=== PATIENT | female | born 1995 | race Caucasian/White ===

== ENCOUNTER 2019-10-21 15:25 | Outpatient (CLI) | payer OTHER, SELFPAY ==
--- NOTE | ~2019-10-21 | US_ITS ---
US thyroid INDICATION: Abnormal thyroid symptoms and signs. TECHNIQUE: Real-time sonographic images of the thyroid gland were obtained. COMPARISON: No prior studies for comparison. FINDINGS: The right thyroid lobe measures 4.6 x 1.1 x 1.6 cm. The left thyroid lobe measures 4.7 x 1 x 1.4 cm. There are no masses identified in the left lobe. In the right lobe there is an ill-defined hypoechoic solid mass measuring 2 x 0.8 x 0.9 cm which is wider than tall and ill-defined margins. N o calcifications identified. There are smaller 2 and 3 mm hypoechoic masses of the right lobe, likely benign. IMPRESSION: 1. Solid hypoechoic right thyroid mass measuring 2 cm greatest dimension categorized as TR 4, modera tely suspicious. Ultrasound-guided fine-needle aspiration recommended. Reviewed, dictated and finalized at location A. AL OPERATOR LINGUIST IMPRESSION: 1. Solid hypoechoic right thyroid mass measuring 2 cm greatest dimension categ orized as TR 4, moderately suspicious. Ultrasound-guided fine-needle aspiration recommended.
== END 2019-10-21 15:26 | disposition home or self-care (01) ==
LOC: ANHIMG 15:33
PROVIDERS: PCP Internal Medicine; Visit Provider Internal Medicine
DX: R68.89 Other general symptoms and signs (principal); R94.6 Abnormal results of thyroid function studies
CPT/HCPCS: 76536

== ENCOUNTER 2019-11-02 13:37 | Outpatient (CLI) | payer OTHER, SELFPAY ==
--- NOTE | ~2019-11-02 | US_ITS ---
EXAMINATION: US FNA w image guidance DATE: 11/02/2019 14:44 INDICATION: Disorder of thyroid TECHNIQUE: A time-out was performed to verify the patient's name, date of , and procedure to be performed . The procedure and its benefits and risks were discussed with the patient. Risks specifically discus sed included bleeding and infection. The patient understood the risks and agreed to proceed. The neck was prepped and draped in the usual sterile manner. 3 mL 1% lidocaine was used for local anesthesia . 6 passes were made with a 25G needle into the lesion. Appropriate needle location was documented with continuous sonographic guidance. A sterile bandage was applied. There were no immediate compli cations. FINDINGS: Grayscale ultrasound images demonstrate needles advanced into a subtle isoechoic 1.8 x 0.9 x 0.7 cm s olid nodule in the deep right thyroid for biopsy. IMPRESSION: 1. Successful ultrasound-guided fine needle aspiration of a 1.8 cm TI RADS 4 solid right thyroid nod ule. Reviewed, dictated and finalized at location A. AL APPLIANCE MECHANIC IMPRESSION: 1. Successful ultrasound-guided fine needle aspiration of a 1.8 cm TI RADS 4 s olid right thyroid nodule.
== END 2019-11-02 13:38 | disposition home or self-care (01) ==
LOC: ANHIMG 13:39
PROVIDERS: PCP Internal Medicine; Visit Provider Internal Medicine
DX: E07.9 Disorder of thyroid, unspecified (principal)
CPT/HCPCS: 10005; 88108; 88173; 88305

== ENCOUNTER 2020-02-04 11:07 | Outpatient (CLI) | payer OTHER, SELFPAY ==
--- NOTE | ~2020-02-04 | US_ITS ---
EXAMINATION: US soft tissue head and neck DATE: 02/04/2020 12:01 INDICATION: Right neck localized swelling. TECHNIQUE: Multiple grayscale and Doppler ultrasound images of the neck were obtained. COMPARISON: None FINDINGS: There is no abnormal mass or lymphadenopathy in right neck in the patient's areas concern. IMPRESSION: 1. No abnormal mass or lymphadenopathy in right neck in the patient's area of concern. Reviewed, dictated and finalized at location A. IMPRESSION: 1. No abnormal mass or lymphadenopathy in right neck in the patient's area of c oncern.
== END 2020-02-04 11:08 | disposition home or self-care (01) ==
PROVIDERS: PCP Internal Medicine; Visit Provider Internal Medicine
DX: R22.0 Localized swelling, mass and lump, head (principal)
CPT/HCPCS: 76536

== ENCOUNTER 2020-05-21 08:57 | Outpatient (CLI) | payer OTHER, SELFPAY ==
--- NOTE | ~2020-05-21 | CT_ITS ---
EXAMINATION: CT brain wo/w con DATE: 05/21/2020 10:14 INDICATION: Dizziness and giddiness. TECHNIQUE: Computed tomography (CT) of the head was performed without and with 100 mL Omnipaque 350 i ntravenous contrast. The mA was adjusted according to patient size. Iterative reconstruction techniqu e was employed. The dose-length product was 1210.67 mGy-cm. COMPARISON: None FINDINGS: There is no intracranial hemorrhage, acute infarction, or abnormal intracranial mass lesion . The ventricles are normal in size. The paranasal sinuses are clear. The mastoid air cells are georg[place] l. IMPRESSION: 1. Normal brain. Reviewed, dictated and finalized at location A. IMPRESSION: 1. Normal brain.
[2020-05-21 09:47] LABS: Estimated Glomerular Filt Rate > 60
== END 2020-05-21 08:58 | disposition home or self-care (01) ==
LOC: ANHIMG 08:59
PROVIDERS: PCP Internal Medicine; Visit Provider Internal Medicine
DX: R51 Headache (principal); R42 Dizziness and giddiness
CPT/HCPCS: 70470; Q9967

== ENCOUNTER 2022-02-13 15:09 | Outpatient (CLI) | payer BC, SELFPAY ==
--- NOTE | ~2022-02-13 | US_ITS ---
EXAMINATION: US thyroid DATE: 02/13/2022 15:39 INDICATION: Goiter. Nontoxic single thyroid nodule. TECHNIQUE: Multiple ultrasound images of the thyroid were obtained. COMPARISON: Thyroid ultrasound 11/02/2019, 10/21/2019 FINDINGS: The right thyroid lobe measures 4.1 x 1.0 x 1.6 cm. The left thyroid lobe measures 4.2 x 1.1 x 1.3 c m. In the right thyroid lobe, there is a 15 mm solid, isoechoic, wider than tall nodule with ill-defi dontrell margin without echogenic foci (TI-RADS TR4), stable from 10/21/19. Biopsy 11/02/19 was benign. In th e left thyroid nodule lobe, there is a 2 mm nodule. IMPRESSION: 1. Thyroid nodules, likely not clinically significant. No follow-up is needed. Reviewed, dictated and finalized at location B.
== END 2022-02-13 15:10 | disposition home or self-care (01) ==
PROVIDERS: PCP Internal Medicine; Visit Provider Internal Medicine
DX: E01.0 Iodine-deficiency related diffuse (endemic) goiter (principal)
CPT/HCPCS: 76536

== ENCOUNTER 2023-02-01 13:44 | Outpatient (CLI) | payer BC, SELFPAY ==
--- NOTE | ~2023-02-01 | US_ITS ---
EXAMINATION: US thyroid DATE: 02/01/2023 14:15 INDICATION: Nontoxic single thyroid nodule. TECHNIQUE: Multiple ultrasound images of the thyroid were obtained. COMPARISON: Ultrasound 02/13/2022, 10/21/2019 FINDINGS: The right thyroid lobe measures 4.8 x 1.3 x 1.8 cm. The left thyroid lobe measures 5.0 x 1.2 x 1.7 c m. In the right thyroid lobe, there is a 14 mm solid, hypoechoic, wider than tall nodule with ill-de fined margin without echogenic foci (TI-RADS TR4), stable from 10/21/2019. Biopsy 11/02/2019 was benign. IMPRESSION: 1. Stable benign thyroid nodule. Reviewed, dictated and finalized at location A.
== END 2023-02-01 13:45 | disposition home or self-care (01) ==
PROVIDERS: PCP Internal Medicine; Visit Provider Internal Medicine
DX: E04.1 Nontoxic single thyroid nodule (principal)
CPT/HCPCS: 76536

== ENCOUNTER 2023-09-04 16:05 | Outpatient (CLI) | payer BC, SELFPAY ==
--- NOTE | ~2023-09-04 | US_ITS ---
EXAMINATION: US renal BI DATE: 09/04/2023 16:37 INDICATION: Unspecified abdominal pain. TECHNIQUE: Multiple ultrasound grayscale images of the kidneys were obtained. COMPARISON: None. FINDINGS: The right kidney measures 11.0 x 5.3 x 6.6 cm. The left kidney measures 9.4 x 5.3 x 5.6 cm. The kidne ys demonstrate normal parenchymal echogenicity. There is no hydronephrosis. The bladder is normal. IMPRESSION: 1. Normal kidneys. No hydronephrosis. Reviewed, dictated and finalized at location E. OF MAINTENANCE
--- NOTE | ~2023-09-04 | XR_ITS ---
EXAMINATION: XR lumbar spine 2-3V DATE: 09/04/2023 16:39 INDICATION: Right-sided low back pain. TECHNIQUE: 3 views of lumbar spine were obtained. COMPARISON: None. FINDINGS: Bone alignment is normal. There is mild chronic anterior wedging of T11-L1 vertebral bodies , likely physiologic. Intervertebral disc heights are normal. The facet joints are normal. IMPRESSION: 1. Normal lumbar spine. Reviewed, dictated and finalized at location E. CAL SALES SPECIALIST IMPRESSION: 1. Normal lumbar spine.
== END 2023-09-04 16:06 | disposition home or self-care (01) ==
PROVIDERS: PCP Nurse Practitioner Family; Visit Provider Nurse Practitioner Family
DX: R35.0 Frequency of micturition (principal); M54.50 Low back pain, unspecified; R10.9 Unspecified abdominal pain
CPT/HCPCS: 72100; 76775